=== PATIENT | male | born 1955 | race Caucasian/White ===

== ENCOUNTER → 2018-09-01 09:55 | Outpatient (CLI) | payer OTHER ==
[2013-06-24 07:43] VITALS: BMI 39.7
[~2018-09-01 09:55] MED LIST: CARDURA1 MG PO; DEXILANT30 MG PO; HYZAAR 100-25 T1 TAB PO; PRAVACHOL20 MG PO; PROCTOCORT28.35 GM RC; ZYLOPRIM300 MG PO
== END | disposition home or self-care (01) ==
LOC: D.HCCARDIO 09:55
DX: R06.02 Shortness of breath (principal)

== ENCOUNTER 2018-09-17 06:52 | Outpatient (CLI) | payer OTHER ==
[~2018-09-17] VITALS: Ht 193 cm; Wt 159.1 kg
--- NOTE | ~2018-09-17 | HEMODYNAMI ---
PATIENT:RUBI QURESHI MEDICAL RECORD: [id number] : 55 LOCATION:[facility] ADMISSION DATE: 09/17/18 Generatedon:09/17/201810:03 Patient name: RUBI QURESHI Patient #: [id number] SSN: : Date of study: 09/17/2018 Page: Of Hemodynamic Procedure Report Patient Data Patient Demographics Procedure consent was obtained First Name: RUBI Gender: Male Last Name: TITUS : 1955 Middle Initial: L Age: 63 year(s) Patient #: [id number] Race: Unknown Additional ID: [id number] Contact details [address]: [address] [place] [address] State: [place] City: [place] Zip code: [address] Past Medical History Allergies: No known allergies Admission Admission Data Admission Date: 09/17/2018 Admission Time: 6:52 Admit Source: Other Lab Results Lab Result Date: 09/17/2018 Lab Result Time: 7:20 Biochemistry Name Units Result Min Max BUN mg/dl 33 --(----)-* 7 18 Creatinine mg/dl 1.7 --(----)-* 0.6 1.3 CBC Name Units Result Min Max Hematocrit % 38.3 *-(----)-- 42 54 Hemoglobin g/dl 13.4 -*(----)-- 13.5 17.5 Procedure Procedure Types Cath Procedure Diagnostic Procedure [facility] w/Coronaries Sedation Charges Moderate Sedation up to 15 minutes Procedure Description Procedure Date Procedure Date: 09/17/2018 Procedure Start Time: 9:48 Procedure End Time: 10:03 Procedure Staff Name Function Edis Ch MD Performing Physician Martha Harris RT Monitor Sylvia Roberson RN Nurse Gaurang Ortez RT Scrub Adiel Camacho RN Pelletizer Operator Procedure Data Cath Procedure Fluoroscopy Diagnostic fluoroscopy Total fluoroscopy Time: 3.8 time: 3.8 min min Diagnostic fluoroscopy Total fluoroscopy dose: dose: 1138 mGy 1138 mGy Contrast Material Contrast Material Type Amount (ml) Isovue 300 71 Entry Location Entry Primary Successful Side Size Upsize Upsize Entry Closure Chen ccessful Closure Location (Fr) 1 (Fr) 2 (Fr) Remarks Device Remarks Radial Right 6 Fr Mechanical artery Short Compression Estimated blood loss: 5 ml Diagnostic catheters Device Type Used For End Catheter Placement DIAGNOSTIC Winston 110cm LV Angiography 5Fr catheter ([id number]) DIAGNOSTIC Winston 110cm Left Coronary 5Fr catheter ([id number]) Angiography DIAGNOSTIC AR1 MOD 5Fr Right Coronary catheter ([id number]) Angiography Procedure Complications No complications Procedure Medications Medication Administration Route Dosage 0.9% NaCl I.V. 100 ml/hr Oxygen etCO2 Nasal cannula 2 l/min Lidocaine 2% added to field 20 Heparin Flush Bag added to field 2 bags (1000units/500ml NS) Radial Cocktail added to field 1 syringe (Verapomil 2mg/Nitro 400mcg/Heparin 1500units) Versed I.V. 2 mg Fentanyl I.V. 100 mcg Versed I.V. 2 mg Fentanyl I.V. 50 mcg Versed I.V. 2 mg Fentanyl I.V. 50 mcg Hemodynamics Rest HGB: 13.4 (g/dl) Heart Rate: 68 (bpm) Pressure Samples Time Site Value (mmHg) Purpose Heart Use Rate(bpm) 9:53 LV 112/-1,9 EDP 77 9:54 AO 94/55(70) Pullback 67 9:54 LV 110/1,6 Pullback 67 Gradients Valve Time Site 1 Site 2 Mean SEP/DFP Peak To Heart Use (mmHg) (sec/min) Peak Rate (mmHg) (bpm) Aortic 9:54 LV AO 10 14 16 67 110/1,6 94/55(70) Calculations Valve P-P Mean Valve Index Valve Source Name Gradient Area Flow (cm2) Aortic 16 10 16 10 Snapshots Pre Cath Intra NCS Post Cath Vital Signs Time Heart Resp SPO2 etCO2 NIBP (mmHg) Rhythm Pain Sedation Rate (ipm) (%) (mmHg) Status Level (bpm) 9:16:38 70 12 100 34.9 149/92(115) NSR 0 (11) 10(A) , No pain 9:21:11 70 10 100 21.5 151/89(116) NSR 0 (11) 10(A) , No pain 9:25:43 65 10 97 28.2 142/82(122) NSR 0 (11) 10(A) , No pain 9:30:22 69 10 97 36.3 123/72(99) NSR 0 (11) 10(A) , No pain 9:34:48 74 10 97 36.4 121/78(100) NSR 0 (11) 10(A) , No pain 9:43:59 71 11 95 32.6 117/70(113) NSR 0 (11) 10(A) , No pain 9:48:19 60 13 96 37.8 124/79(107) NSR 0 (11) 10(A) , No pain 9:52:45 75 10 98 38 116/70(91) NSR 0 (11) 10(A) , No pain 9:57:08 78 13 97 31.1 118/69(86) NSR 0 (11) 9(A) , No pain 10:01:30 75 18 96 30 124/77(104) NSR 0 (11) 10(A) , No pain Medications Time Medication Route Dose Verified Delivered Reason Notes Ef fectiveness by by 9:16:50 0.9% NaCl I.V. 100 Edis Sylvia used for ml/hr Dima Roberson director staffing 9:16:58 Oxygen etCO2 2 l/min Edis Sylvia used for Nasal Dima Roberson procedure cannula RN 9:17:03 Lidocaine 2% added 20ml Edis Edis for local to vial Dima Ch MD anesthetic field 9:17:09 Heparin Flush added 2 bags Edis Edis used for Bag to Dima Ch MD procedure (1000units/500ml field NS) 9:17:18 Radial Cocktail added 1 Edis Edis used for (Verapomil to syringe Dima Ch MD procedure 2mg/Nitro field 400mcg/Heparin 1500units) 9:40:04 Versed I.V. 2 mg Edis Sylvia for Dima Roberson sedation RN 9:40:11 Fentanyl I.V. 100 mcg Edis Sylvia for Dima Roberson sedation RN 9:45:23 Versed I.V. 2 mg Edis Sylvia for Dima Roberson sedation RN 9:45:33 Fentanyl I.V. 50 mcg Edis Sylvia for Dima Roberson sedation RN 9:53:09 Versed I.V. 2 mg Edis Sylvia for Dima Roberson sedation RN 9:53:13 Fentanyl I.V. 50 mcg Edis Sylvia for Dima Roberson sedation novelties sales representative Log Time Note 9:04:25 Admit Source: Other 9:05:04 Adiel Camacho RN sent for patient. Start room use. 9:05:05 Time tracking: Regular hours (M-F 7:00 - 5:00) 9:05:08 Plan of Care:Hemodynamics will remain stable., Cardiac rhythm will remain stable., Comfort level will be maintained., Respiratory function will remain adequate., Patient/ family verbilizes understanding of procedure., Procedure tolerated without complication., Recovers from procedure without complications.. 9:08:50 Lab Result : BUN 33 mg/dl 9:08:50 Lab Result : Creatinine 1.7 mg/dl 9:08:50 Lab Result : Hemoglobin 13.4 g/dl 9:08:50 Lab Result : Hematocrit 38.3 % 9:08:52 Lab results completed and on chart. 9:08:58 Patient received from Pre/Post Procedure Room to CCL 1 Alert and oriented. Tansferred to table in Supine position. 9:08:59 Warm blankets applied, and rama hugger turned on for patient comfort. 9:08:59 Correct patient and procedure confirmed by team. 9:09:01 Signed procedure consent form obtained from patient. 9:09:02 ECG and BP/O2 sat monitors applied to patient. 9:09:03 Pre-procedure instructions explained to patient. 9:09:03 Pre-op teaching completed and patient verbalized understanding. 9:09:04 Family in waiting room. 9:09:05 Patient NPO since Midnight. 9:09:10 Patient allergic to No known allergies 9:09:13 Is patient on blood thinner?No 9:09:14 Patient diabetic? No. 9:09:17 Previous problem with sedation/anesthesia? No ? 9:09:18 Snore? Yes 9:09:19 Sleep apnea? Yes 9:09:20 Deviated septum? No 9:09:22 Opens mouth fully? Yes 9:09:23 Sticks out tongue? Yes 9:09:25 Airway obstruction? No ? 9:09:27 Dentures? No ? 9:15:16 Vital chart was started 9:16:50 0.9% NaCl 100 ml/hr I.V. was administered by Sylvia Roberson RN; used for procedure; 9:16:58 Oxygen 2 l/min etCO2 Nasal cannula was administered by Sylvia Roberson RN; used for procedure; 9:17:03 Lidocaine 2% 20ml vial added to field was administered by Edis Ch MD; for local anesthetic; 9:17:09 Heparin Flush Bag (1000units/500ml NS) 2 bags added to field was administered by Edis Ch MD; used for procedure; 9:17:18 Radial Cocktail (Verapomil 2mg/Nitro 400mcg/Heparin 1500units) 1 syringe added to field was administered by Edis Ch MD; used for procedure; 9:21:16 Rhythm: sinus rhythm 9:21:18 Baseline sample Acquired. 9:21:20 Full Disclosure recording started 9:21:49 H&P Date Dictated: 09/17/2018 Within 30 days and on chart.. 9:21:53 Is the patient allergic to Iodine/contrast media? No. 9:22:00 Pre procedure: right dorsailis pedis pulse 2+ Normal; easily identifiable; not easily obliterated 9:22:02 Modified Michael's test Radial < 7 seconds 9:22:04 Patient pain scale 0/10 ?. 9:22:12 IV patent on arrival in right antecubital with 0.9% NaCl at KVO. 9:22:17 Right Radial & Right Groin area was prepped with chlora-prep and draped in sterile fashion 9:22:17 Alarms reviewed by R. N. 9:22:18 Sharps counted by scrub and verified by R.N. 9:22:21 Use device set Radial Dx or PCI 9:22:21 ACIST Syringe (53789) opened to sterile field. 9:22:22 Medline Cath Pack ([id number]) opened to sterile field. 9:22:22 Bag Decanter (2002) opened to sterile field. 9:22:23 DIAGNOSTIC WIRE .035 260cm J wire (831986) opened to sterile field. 9:22:23 ACIST Hand Control (48515) opened to sterile field. 9:22:24 ACIST Manifold (92301) opened to sterile field. 9:22:24 Tegaderm 4 x 4 (1626W) opened to sterile field. 9:22:25 MBrace Wrist Support ([id number]) opened to sterile field. 9:22:26 SHEATH 6FR Slender (32-5957) opened to sterile field. 9:22:29 NEEDLE Cook 21G 4cm Radial ([id number]) opened to sterile field. 9:30:15 Zero performed for pressure channel P1 9:38:32 Final Timeout: patient, procedure, and site verified with staff and physician. All members of the team are in agreement. 9:38:36 Right Radial site verified by team. 9:38:39 Physical assessment completed. ASA score P 2 - A patient with mild systemic disease as per Edis Ch MD. 9:38:42 Sedation plan: IV Moderate Sedation Medication:Versed, Fentanyl 9:40:04 Versed 2 mg I.V. was administered by Sylvia Roberson RN; for sedation; 9:40:11 Fentanyl 100 mcg I.V. was administered by Sylvia Roberson RN; for sedation; 9:45:23 Versed 2 mg I.V. was administered by Sylvia Roberson RN; for sedation; 9:45:33 Fentanyl 50 mcg I.V. was administered by Sylvia Roberson RN; for sedation; 9:48:33 Procedure started. 9:48:37 Local anesthetic to right femoral artery with Lidocaine 2% by Edis Ch MD.INITIAL ACCESS ONLY 9:50:33 A 6 Fr Short sheath was inserted into the Right Radial artery 9:50:53 A DIAGNOSTIC Winston 110cm 5Fr catheter (096878) was advanced over the wire and used for LV Angiography. 9:53:09 Versed 2 mg I.V. was administered by Sylvia Roberson RN; for sedation; 9:53:13 Fentanyl 50 mcg I.V. was administered by Sylvia Roberson RN; for sedation; 9:53:46 LV gram done using KING 9:53:47 LV hemodynamics recorded. 9:53:49 Injector settings: Ml/sec: 5, Volume: 15, 9:54:09 EF : 55 % 9:55:50 A DIAGNOSTIC Winston 110cm 5Fr catheter (336382) was advanced over the wire and used for Left Coronary Angiography. 9:56:31 Catheter removed. 9:57:51 A DIAGNOSTIC AR1 MOD 5Fr catheter ([id number]) was advanced over the wire and used for Right Coronary Angiography. 9:58:38 TR BAND Large ([id number]) opened to sterile field. 9:59:34 Catheter removed. 9:59:45 Sheath removed intact; hemostasis achieved with Mechanical Compression to the Right Radial artery. 9:59:47 Procedure ended.(Physican Out) 9:59:57 Fluoroscopy time 03.80 minutes. 10:00:02 Fluoroscopy dose: 1138 mGy 10:00:02 Flurop Dose total: 1138 10:00:06 Contrast amount:Isovue 300 71ml. 10:00:08 Sharps counted by scrub and verified by R.N. 10:00:10 TR band inflated with 9cc of air. 10:00:12 Insertion/operative site no bleeding no hematoma. 10:00:17 Post right radial artery:stable, clean and dry 10:00:19 Post Procedure Pulses reassessed and unchanged 10:00:22 Post-procedure physical assessment completed. ASA score P 2 - A patient with mild systemic disease as per Edis Ch MD. 10:00:24 Post procedure rhythm: unchanged. 10:00:26 Estimated blood loss: 5 ml 10:00:27 Post procedure instruction explained to patient.Patient verbalizes understanding. 10:00:28 Patient needs reinforcement of post procedure teaching. 10:00:46 Procedure type changed to Cath procedure, Diagnostic procedure, LHC, LHC w/Coronaries, Sedation Charges, Moderate Sedation up to 15 minutes 10:00:52 Procedure Complication : No complications 10:00:54 See physician's report for complete and final results. 10:01:16 Procedure and supply charges have been captured, reviewed, submitted and are correct. 10:03:06 Vital chart was stopped 10:03:08 Report given to Pre/Post Procedure Room. 10:03:10 Patient transfered to Pre/Post Procedure Room with Stretcher. 10:03:27 Procedure ended. 10:03:27 Full Disclosure recording stopped 10:03:31 End room use (Document Last) Device Usage Item Name Manufacture Quantity Catalog Hospital Part Current Minimal Lot# / Number Charge Number Stock Stock Serial# Code ACIST Acist 1 51513 024128 980499 311164 20 Searchbox ([employer]26[employer] Medline Medline 1 [id number] 863901 46426 223301 5 Cath Pack ([id number]) Bag Microtek 1 2001S 402021 72817 651808 5 Decanter Medical Inc. () DIAGNOSTIC [facility] [place] 1 303469 379426 626052 254704 30 WIRE .035 260cm J wire (395392) ACIST Hand Acist 1 01453 158313 741272 724708 5 Control Medical (98856) Systems Inc ACIST Acist 1 74105 428070 829750 142836 5 Manifold Medical (99016) Systems Inc Tegaderm 4 3M 1 1626W 272110 094146 243182 5 x 4 (1626W) MBrace Advanced 1 140-0250-00 885944 52206 726469 5 Wrist Vascular Support Dynamics ([id number]) SHEATH 6FR Terumo 1 [id number] 791012 128240 263826 5 Slender (80-1060) NEEDLE Cook Cook Medical 1 [id number] 734803 577634 265866 5 21G 4cm Radial (U86625) DIAGNOSTIC Terumo 1 40-5023 291851 951555 783073 5 Winston 110cm 5Fr catheter (746192) DIAGNOSTIC Cardinal 1 610998W 911969 017416 216792 15 AR1 MOD 5Fr Health catheter (214805T) TR BAND Terumo 1 [id number] 142798 112855 514012 40 Large ([id number]) Signature Audit [place] Stage Time Signature Unsigned Intra-Procedure 09/17/2018 Martha 10:03:40 AM Counts RT(R) Signatures Monitor : Martha Signature : Counts RT Date : Time : [place] [address] [place] [address]
[2018-09-17] MEDS ORDERED: ULORIC40 MG PO (07:19)
[2018-09-17] MEDS ORDERED: FUROSEMIDE20 MG PO (07:20)
[2018-09-17] MEDS ORDERED: WELLBUTRIN SR150 MG PO (07:21)
[2018-09-17] MEDS ORDERED: K-DUR20 MEQ PO (07:21)
[2018-09-17 07:27] VITALS: BP 137/64; Ht 193 cm; Wt 159.1 kg
[2018-09-17 07:43] LABS: BASOPHILS 0.6 % (0-2); EOSINOPHILS 4.3 % (0-7); HEMATOCRIT 38.3 % (42.0-54.0); HEMOGLOBIN 13.4 g/dL (13.5-17.5); IMMATURE GRANULOCYTES 0.3 % (0-5); LYMPHOCYTES 33.3 % (15-50); MCH 30.2 pg (26.0-34.0); MCV 86.3 fL (80.0-100.0); MEAN PLATELET VOLUME 9.3 fL (7.4-10.4); MONOCYTES 10.3 % (2-11); NEUTROPHILS 51.2 % (40-80); PLATELET COUNT 200 10x3/uL (130-400); RBC 4.44 10x6/uL (4.20-6.10); RDW 13.1 % (11.5-14.5); WBC 6.7 10x3/uL (4.8-10.8)
[2018-09-17 07:50] LABS: ANION GAP 15.4 mmol/L (8-16); CALCIUM 9.1 mg/dL (8.5-10.1); CARBON DIOXIDE 27.3 mmol/L (21.0-32.0); CREATININE - SERUM 1.7 mg/dL (0.6-1.3); POTASSIUM - SERUM 3.7 mmol/L (3.5-5.1)
--- NOTE | 2018-09-17 10:25 | NUR ---
2L NC, NO RESP DISTRESS. RIGHT WRIST TR BAND CDI, NO BLEEDING OR HEMATOMA NOTED. NO C/O PAIN OR NAUSEA. VSS. FAMILY AT BEDSIDE, CALL LIGHT WITHIN REACH.
--- NOTE | 2018-09-17 10:55 | NUR ---
SIPPING ON DRINK AND EATING SANDWICH WITH NO C/O NAUSEA. RIGHT WRIST TR BAND CDI, NO BLEEDING OR HEMATOMA NOTED. DENIES ANY NEEDS. VSS. WILL CONTINUE TO MONITOR.
--- NOTE | 2018-09-17 11:15 | NUR ---
3CC OF AIR REMOVED FROM TR BAND WITH NO BLEEDING NOTED. VSS. NO NEEDS VOICED. WILL MONITOR CLOSELY.
--- NOTE | 2018-09-17 11:30 | NUR ---
3CC OF AIR REMOVED FROM TR BAND WITH NO BLEEDING NOTED.
--- NOTE | 2018-09-17 11:50 | NUR ---
3CC OF AIR REMOVED FROM TR BAND WITH NO BLEEDING NOTED. VSS.
--- NOTE | 2018-09-17 12:05 | NUR ---
RIGHT PIV D/C'D WITH CATHETER INTACT, BAND AID TO SITE. UP TO BEDSIDE TO GET DRESSED. AMBULATED TO RESTROOM.
--- NOTE | 2018-09-17 12:12 | NUR ---
REMAINING AIR REMOVED FROM TR BAND WITH NO BLEEDING NOTED. DRESSING PLACED TO SITE. DISCHARGE INSTRUCTIONS GIVEN, VERBALIZED UNDERSTANDING.
--- NOTE | 2018-09-17 12:21 | NUR ---
TAKEN OUT VIA WHEELCHAIR BY CATH SALES ACCOUNT ASSOCIATE. LEFT FACILITY WITH FAMILY AND ALL PERSONAL BELONGINGS.
== END 2018-09-17 12:21 | disposition home or self-care (01) ==
LOC: D.CATH 06:52
PROVIDERS: Internal Medicine Cardiovascular Disease
DX: I20.9 Angina pectoris, unspecified (principal); I10 Essential (primary) hypertension; E78.5 Hyperlipidemia, unspecified; G62.9 Polyneuropathy, unspecified; K21.9 Gastro-esophageal reflux disease without esophagitis; F32.9 Major depressive disorder, single episode, unspecified; Z79.899 Other long term (current) drug therapy; Z01.812 Encounter for preprocedural laboratory examination

== ENCOUNTER 2019-08-23 14:54 | Inpatient (IN) | payer OTHER ==
[~2019-08-23] VITALS: Ht 193 cm; Wt 145.5 kg
[~2019-08-23 14:54] MED LIST changes: +FUROSEMIDE20 MG PO; +K-DUR20 MEQ PO; +ULORIC40 MG PO; +WELLBUTRIN SR150 MG PO
[2019-08-23 15:42] LABS: BASOPHILS 0.2 % (0-2); EOSINOPHILS 2.3 % (0-7); HEMATOCRIT 38.9 % (42.0-54.0); HEMOGLOBIN 13.3 g/dL (13.5-17.5); IMMATURE GRANULOCYTES 0.7 % (0-5); LYMPHOCYTES 16.6 % (15-50); MCH 29.4 pg (26.0-34.0); MCHC 34.2 g/dL (31.0-37.0); MCV 85.9 fL (80.0-100.0); MEAN PLATELET VOLUME 9.7 fL (7.4-10.4); MONOCYTES 13.2 % (2-11); PLATELET COUNT 227 10x3/uL (130-400); RBC 4.53 10x6/uL (4.20-6.10); RDW 13.6 % (11.5-14.5); WBC 9.1 10x3/uL (4.8-10.8)
[2019-08-23 15:58] LABS: ANION GAP 13.9 mmol/L (8-16); CALCIUM 8.8 mg/dL (8.5-10.1); CARBON DIOXIDE 28.9 mmol/L (21.0-32.0); CREATININE - SERUM 4.6 mg/dL (0.6-1.3); POTASSIUM - SERUM 3.8 mmol/L (3.5-5.1)
--- NOTE | 2019-08-23 16:00 | NUR ---
ASSESSMENT PER FLOW SHEET. PT IS WITHOUT DISTRESS.CALL LIGHT IN REACH. ORIENTATION TO ROOM,
[2019-08-23 16:02] LABS: C-REACTIVE PROTEIN 11.5 mg/dL (0.0-0.9)
[2019-08-23] MEDS ORDERED: METOPROLOL TART50 MG PO (16:45)
[2019-08-23] MEDS ORDERED: PEPCID AC20 MG PO (16:46)
[2019-08-23] MEDS ORDERED: TYLENOL ARTHRI650 MG PO (16:48)
[2019-08-23] MEDS ORDERED: IBUPROFEN800 MG PO (16:49)
[2019-08-23 17:02] VITALS: BP 91/50; Ht 193 cm; Wt 145.5 kg
[2019-08-23 17:17] LABS: ERYTHROCYTE SEDIMENTATION RATE 80 mm/hr (0-20)
--- NOTE | 2019-08-23 19:00 | NUR ---
BEDSIDE REPORT RECEIVED AND ASSUMED CARE
--- NOTE | 2019-08-23 19:15 | NUR ---
PATIENT ALERT AND ORIENTED WHEN ENTERING THE ROOM. PATIENT BENJI. MOUTH WITH NO INTERNAL OR EXTERNAL LESIONS NOTED. PATIENT HAND MOLDER MEAT STRONG AND EQUAL. LUNG SOUNDS CLEAR BILATERALLY IN UPPER AND LOWER LOBES. PATIENT HAS ACTIVE BOWEL SOUNDS IN EACH QUADRANT. LEFT LOWER EXTREMETY PRESENTS WITH REDNESS BELOW THE KNEE AND FRESH DRESSING BY DOCTOR ZAMUDIO THAT EXTENDS FROM THE BOTTOM OF MICHEL AND AROUND FOOT SOLES. PATIENT REPORTS THERE IS A LARGE, NON WEEPING SORE ON THE SOLE OF FOOT. RIGHT FOOT WITH NO SIGNS OF EDEMA OR SCABS OR SWELLING. FOOT PUMPS STRONG AND EQUAL. DENIES PAIN. DENIES DISCOMFORT. DISCUSSED ORDERS WITH PATIENT, INCLUDING PATEL CATHETER INSERTION. PATIENT VERBALIZES UNDERSTANDING. DENIES FURTHER QUESTIONS. CALL LIGHT IN REACH. CPOC.
--- NOTE | 2019-08-23 19:50 | NUR ---
INSERTED PATEL CATHETER USING STERILE TECHNIQUE. PATIENT TOLERATED WELL. OBTAINED URINE SPECIMEN AND REFLEX PER ORDER. DENIES FURTHER NEEDS. CALL LIGHT IN REACH. CPOC.
[2019-08-23 20:00] VITALS: BP 106/61
[2019-08-23 20:47] LABS: APPEARANCE CLEAR (CLEAR); BILIRUBIN NEGATIVE (NEGATIVE); COLOR YELLOW (YELLOW); GLUCOSE NEGATIVE (NEGATIVE); KETONE NEGATIVE (NEGATIVE); NITRITE NEGATIVE (NEGATIVE); PROTEIN TRACE mg/dL (NEGATIVE); SPECIFIC GRAVITY 1.015 (1.005-1.020); UROBILINOGEN NORMAL (NORMAL)
[2019-08-24] VITALS: BP 111/57
--- NOTE | 2019-08-24 00:36 | NUR ---
PATIENT RESTING WITH EYES CLOSED AND WITH EVEN AND UNLABORED RESPIRATIONS. CALL LIGHT REMAINS IN REACH. CPOC.
[2019-08-24 04:35] LABS: BASOPHILS 0.1 % (0-2); EOSINOPHILS 1.3 % (0-7); HEMATOCRIT 35.3 % (42.0-54.0); IMMATURE GRANULOCYTES 0.7 % (0-5); LYMPHOCYTES 12.5 % (15-50); MCH 28.6 pg (26.0-34.0); MEAN PLATELET VOLUME 9.7 fL (7.4-10.4); MONOCYTES 13.4 % (2-11); PLATELET COUNT 220 10x3/uL (130-400); RDW 13.5 % (11.5-14.5); WBC 9.1 10x3/uL (4.8-10.8)
[2019-08-24 05:08] LABS: ANION GAP 14.9 mmol/L (8-16); CALCIUM 8.4 mg/dL (8.5-10.1); CARBON DIOXIDE 23.5 mmol/L (21.0-32.0); MAGNESIUM - SERUM 1.8 mg/dL (1.8-2.4); POTASSIUM - SERUM 3.4 mmol/L (3.5-5.1)
[2019-08-24 05:09] LABS: CREATININE - SERUM 2.9 mg/dL (0.6-1.3)
--- NOTE | 2019-08-24 06:19 | NUR ---
I have reviewed this patient and I concur with the Shift Assessment completed by the Licensed Practical Nurse today this shift.
--- NOTE | 2019-08-24 08:00 | NUR ---
ASSESSMENT PER FLOW SHEET. PT IS WITHOUT DISTRESS.MONITOR FOR NEEDS.CALL LIGHT IN REACH
[2019-08-24 08:24] VITALS: BP 123/66
[2019-08-24 12:54] VITALS: BP 118/55
[2019-08-24 17:06] VITALS: BP 124/69
--- NOTE | 2019-08-24 18:53 | NUR ---
PT IS WITHOUT CHANGE FROM INITIAL SHIFT ASSESSMENT.CONT PLAN OF CARE
[2019-08-24 20:00] VITALS: BP 118/72
--- NOTE | 2019-08-24 20:00 | NUR ---
ASSESSMENT PER FLOWSHEET. DRESSING TO LEFT FOOT C/D/I. LEFT LEG RED AND SWOLLEN. RT FOOT GREAT TOE HAS A RED SORE ON IT. PATEL TO BEDSIDE DRAINAGE WITH YELLOW URINE.
--- NOTE | 2019-08-24 22:00 | NUR ---
MEDS GIVEN PER MAR.
--- NOTE | 2019-08-25 | NUR ---
EYES CLOSED RESPIRATIONS WITH EASE AND UNLABORED.
[2019-08-25 04:00] VITALS: BP 120/77
--- NOTE | 2019-08-25 04:02 | NUR ---
RESTING QUIETLY DENIES NEEDS.
[2019-08-25 05:12] LABS: BASOPHILS 0.2 % (0-2); EOSINOPHILS 2.1 % (0-7); HEMATOCRIT 34.7 % (42.0-54.0); HEMOGLOBIN 11.9 g/dL (13.5-17.5); IMMATURE GRANULOCYTES 0.7 % (0-5); LYMPHOCYTES 19.5 % (15-50); MCH 29.2 pg (26.0-34.0); MCHC 34.3 g/dL (31.0-37.0); MCV 85.3 fL (80.0-100.0); MEAN PLATELET VOLUME 9.3 fL (7.4-10.4); NEUTROPHILS 63.5 % (40-80); PLATELET COUNT 244 10x3/uL (130-400); RBC 4.07 10x6/uL (4.20-6.10); RDW 13.5 % (11.5-14.5); WBC 8.8 10x3/uL (4.8-10.8)
[2019-08-25 05:18] LABS: ANION GAP 10.3 mmol/L (8-16); CALCIUM 8.5 mg/dL (8.5-10.1); CARBON DIOXIDE 29.2 mmol/L (21.0-32.0); PHOSPHOROUS 2.4 mg/dL (2.5-4.9); POTASSIUM - SERUM 3.5 mmol/L (3.5-5.1); URIC ACID 6.4 mg/dL (2.6-7.2); VANCOMYCIN - RANDOM 4.1 ug/mL (10.0-20.0)
[2019-08-25 05:20] LABS: CREATININE - SERUM 1.5 mg/dL (0.6-1.3)
--- NOTE | 2019-08-25 06:17 | NUR ---
EYES CLOSED RESPIRATIONS WITH EASE AND UNLABORED.
--- NOTE | 2019-08-25 07:49 | HP ---
PATIENT: RUBI QURESHI MEDICAL RECORD: [id number] ACCOUNT: [id number] LOCATION:[id number] : 55 ADMISSION DATE: 08/23/19 PCP: YARELIS RODRIGUEZ MD HISTORY AND PHYSICAL EXAMINATION REASON FOR ADMISSION: Right leg swelling, redness, and ulcers. HISTORY OF PRESENT ILLNESS: The patient is a 64-year-old male with history of essential hypertension, morbid obesity, osteoarthritis. He states for the last 3 months or so, he has had a blister and then ulcer on the bottom of his left foot that would not heal. His said he wears shoes without socks much of the time. He notes some swelling over the weekend and some fever to approximately 100 degrees Fahrenheit he thinks although he never took his temperature. He also has been taking high dose of ibuprofen 800 mg 4 times a day for chronic knee arthritis and left hip pain. Denies any change in urination. He has nocturia once nightly after starting doxazosin. Presented to my office today with obvious cellulitis of his left foot and nonhealing foot ulcer and was admitted to the hospital. Labs have returned now showing a BUN of 44, creatinine of 4.4. His last creatinine was 1.7 in the office 6 months ago. He also has history of gout. He has been on Uloric, Lotensin HCT for hypertension, and Lasix for peripheral edema. He has no previous history of kidney disease. PAST MEDICAL HISTORY: Morbid obesity, osteoarthritis of knees and hip, essential hypertension, hyperlipidemia, history of RLS, gouty arthritis, peripheral neuropathy, remote history of depression. HOME MEDICATIONS: Ibuprofen 800 mg 4 times daily, Cardura 2 mg at bedtime, losartan HCT 100/12.5 one p.o. daily, metoprolol 50 mg a day, pravastatin 20 mg with evening meal, Tylenol Arthritis 1200 mg t.i.d., Wellbutrin-SR 150 mg p.o. b.i.d., Lasix 20 mg p.o. q.a.m., potassium 20 mEq p.o. daily, famotidine 20 mg p.o. at bedtime. FAMILY HISTORY: Mother had history of arrhythmia and sick sinus syndrome, is . Father of CHF. PAST SURGICAL HISTORY: He has had arthroscopy of his right knee for arthritis and hemorrhoidectomy. SOCIAL HISTORY: Nonsmoker, nondrinker, , retired recently. REVIEW OF SYSTEMS: CONSTITUTIONAL: He has had low-grade fever he suspects for the last 2-3 days, fatigue. No change in appetite. HEENT: No recent visual change, sinus congestion, or sore throat. RESPIRATORY: No severe cough. CARDIAC: No exertional shortness of breath, chest pain. Negative cardiac catheterization a year ago after a false positive stress test. History of hypertension. Mild peripheral edema, worse in the left leg recently. GASTROINTESTINAL: No nausea, vomiting, change in stools, blood per rectum, or dyspepsia. GENITOURINARY: Nocturia once nightly with slow decreased voiding stream. No dysuria or hematuria. MUSCULOSKELETAL: He has chronic arthralgias in both knees and left hip. INTEGUMENT: Increasing erythema in his left lower extremity from the bottom of HISTORY AND PHYSICAL [id number] TITUSRUBI BALDEMAR his foot up to the mid calf. PSYCHIATRIC: Has depressed mood, but has improved on antidepressants. ENDOCRINE: Denies polyuria, polydipsia, heat or cold intolerance. PHYSICAL EXAMINATION: GENERAL: Alert 64-year-old male, in no acute distress. VITAL SIGNS: His temperature is 97.5 orally, pulse 60 and regular, respirations are 20, blood pressure is 91/50 with a sat of 97% on room air. HEENT: Normocephalic. Eyes are clear. NECK: No bruits or masses. CHEST: Clear. HEART: Regular without murmur. ABDOMEN: Obese, soft, nontender. GENITOURINARY: Reveals moderately enlarged prostate. No rectal masses. EXTREMITIES: He has 2+ edema of his right lower extremity from the knee down. Left lower extremity shows 3+ edema with erythema and heat in the mid calf into the ankle and dorsum of the foot. On the bottom of his left foot, he has incised deep ulcer. Bone is not exposed. NEUROLOGICAL: Slight decreased sensation to touch in bottoms of both feet. Cranial nerves grossly intact. Gait was normal except for pain in his left foot. LABORATORY DATA: White count of 9100, H&H of 13.3 and 38.9, platelet count of 227,000 with normal diff. BMP shows BUN and creatinine of 44 and 4.6. A1c of 5.8. C-reactive protein of 11.5. Glucose of 106. ASSESSMENT: 1. Acute renal failure, probably due to renal toxic drugs including high dose of ibuprofen, Lasix, and hydrochlorothiazide. 2. Cellulitis left lower extremity with foot ulcer. 3. Hyperlipidemia. 4. Morbid obesity. 5. History of gouty arthritis. 6. Essential hypertension. 7. Depression. PLAN: We will admit for IV fluids. We will hold renal toxic drugs currently. We will place on Rocephin. Renal and podiatric consults. Renal ultrasound. Place [facility] tonight for output. TRANSINT:[id number] Voice Confirmation ID: [id number] DOCUMENT ID: [id number] YARELIS RODRIGUEZ MD at 0749 CC: [id number] DICTATION DATE: 08/23/191730 NET TECHNICAL ARCHITECT: 08/23/191913 ADM IN [facility] [address] [place] [address]
[2019-08-25 09:22] VITALS: BP 118/67
--- NOTE | 2019-08-25 09:45 | NUR ---
PATIENT PATEL REMOVED AT THIS TIME. CALL LIGHT WITHIN REACH.
--- NOTE | 2019-08-25 10:40 | NUR ---
PATIENT IN BED WITH IV INTACT. DRESSING LEFT OPEN FOR DR. ZAMUDIO TO SEE AND WRAP. PATIENT HAS NO COMPLAINTS OF PAIN. CALL LIGHT WITHIN REACH.
--- NOTE | 2019-08-25 11:00 | NUR ---
PATIENT VOIDING WITH NO PROBLEMS.
[2019-08-25] MEDS ORDERED: COZAAR50 MG PO (12:53)
[2019-08-25] MEDS ORDERED: CARDURA2 MG PO (12:53)
[2019-08-25] MEDS ORDERED: AUGMENTIN 875-11 TAB PO (13:00)
[2019-08-25 13:13] VITALS: BP 101/57
--- NOTE | 2019-08-25 14:51 | NUR ---
PATIENT RECIEVED DC INSTRUCTIONS. NO QUESTIONS AT THIS TIME. EXPLAINED TO SECOND STEWARD PRESCRIPTIONS ON THE WAY HOME. VERBALIZED UNDERSTANDING. STATED HE WAS GIVEN INSTRUCTIONS ABOUT CHANGING HIS DRESSING BY DR. HOLLEY. DRESSING SUPPLIES GIVEN TO PATIENT. WAITING ON WC FOR DC. CALL LIGHT WITHIN REACH.
--- NOTE | 2019-08-25 15:06 | NUR ---
PATIENT ESCORTED OUT OF HOSPITAL VIA WC WITH PERSONAL BELONGINGS TO PRIVATE VEHICLE BY [employer].
== END 2019-08-25 15:11 | disposition home or self-care (01) | DRG 571 ==
LOC: D.MS 14:54
PROVIDERS: Internal Medicine Nephrology; ADMIT Family Medicine; ATTEND Family Medicine
PROC: 0JBR0ZZ Excision of Left Foot Subcutaneous Tissue and Fascia, Open Approach (ICD-10-PCS; principal; 2019-08-23)
DX: L97.522 Non-pressure chronic ulcer of other part of left foot with fat layer exposed (principal); L03.116 Cellulitis of left lower limb; N17.9 Acute kidney failure, unspecified; E78.5 Hyperlipidemia, unspecified; E66.01 Morbid (severe) obesity due to excess calories; Z68.39 Body mass index [BMI] 39.0-39.9, adult; I10 Essential (primary) hypertension